=== PATIENT | male | born 1985 | race Caucasian/White ===

== ENCOUNTER 2018-09-24 11:48 | Emergency (ER) | payer OTHER, MEDICAID ==
[~2018-09-24] VITALS: Ht 177.8 cm; Wt 99.8 kg
[2018-09-24 11:50] VITALS: BP 118/73
--- NOTE | 2018-09-24 12:00 | NUR ---
PT PRESENTS TO ED WITH C/O DIZZINESS & BLE PAIN 5/10 FOR APPROX 3 DAYS. DENIES NAUSEA, VOMITING. DENIES TRAUMA OR INJURY. PT IS ALERT AND ORIENTED TO PERSON, PLACE, TIME AND EVENT. BILATERAL HAND HAND GLOVE CLEANER EQUAL; BILATERAL FOOT PUSH EQUAL. SPEECH IS CLEAR. NO FACIAL ASYMMETRY OBSERVED. CONNECTED TO INSTITUTIONAL AIDE;VSS. ERMD TO EVALUATE PT.
[2018-09-24] MEDS ORDERED: NACL 0.9% 1,000 ML IV ONE (12:10)
--- NOTE | 2018-09-24 12:15 | NUR ---
PT ENCOURAGED TO URINATE FOR UDS; PER PT HE IS UNABLE TO PROVIDE URINE SAMPLE AT THIS TIME.
[2018-09-24 12:40] LABS: BASOPHILS % (AUTO) 0.7 % (0.0-2.0); EOSINOPHILS # (AUTO) 0.1 K/uL (0-0.4); EOSINOPHILS % (AUTO) 1.1 % (0.0-4.0); HEMATOCRIT 42.9 % (36-52); HEMOGLOBIN 14.3 g/dL (12.0-18.0); LYMPHOCYTES # (AUTO) 0.8 K/uL (2.0-11.5); LYMPHOCYTES % (AUTO) 15.2 % (20.5-51.1); MEAN CORPUSCULAR HEMOGLOBIN 31 pg (27-31); MEAN CORPUSCULAR HGB CONC 34 g/dL (33-37); MEAN CORPUSCULAR VOLUME 91.4 fL (80-94); MONOCYTES # (AUTO) 0.4 K/uL (0.8-1.0); MONOCYTES % (AUTO) 7.7 % (1.7-9.3); NEUTROPHILS # (AUTO) 4.1 K/uL (1.8-7.7); NEUTROPHILS % (AUTO) 75.3 % (42.2-75.2); PLATELET COUNT (AUTO) 230 K/uL (140-450); RED BLOOD CELL COUNT(AUTO) 4.69 MIL/uL (4.20-6.10); RED CELL DISTRIBUTION WIDTH 14.1 % (11.6-13.7); WHITE BLOOD COUNT (AUTO) 5.4 K/uL (4.8-10.8)
[2018-09-24 12:49] LABS: ANION GAP 11.8 (8-16); CHLORIDE 107 mmol/L (98-107); CREATININE 1.1 mg/dL (0.7-1.3); GFR ARICAN-AMERICAN 99 mL/min (>90); GLUCOSE 102 mg/dL (74-106); POTASSIUM 3.8 mmol/L (3.5-5.1); SODIUM SERUM 142 mmol/L (136-145); UREA NITROGEN, BLOOD 7 mg/dL (7-18)
[2018-09-24 12:54] LABS: ALBUMIN 3.4 g/dL (3.4-5.0); ASPARTATE AMINOTRANSFERASE 15 U/L (15-37); TOTAL BILIRUBIN 0.6 mg/dL (0.0-1.0)
[2018-09-24 12:55] LABS: SALICYLATE < 2.8 mg/dL (2.8-20.0)
[2018-09-24 12:56] LABS: ACETAMINOPHEN < 0.5 ug/ml (10-30)
--- NOTE | 2018-09-24 14:00 | NUR ---
ENCOURAGED PT TO PROVIDE URINE SAMPLE; PT STATED HE JUST USED THE RR AND IS UNABLE TO URINATE AT THIS TIME. DR MCDUFFIE INFORMED.
[2018-09-24 14:28] VITALS: BP 118/72
== END 2018-09-24 14:28 | disposition home or self-care (01) ==
LOC: MED 11:48
DX: M25.561 Pain in right knee (principal); R42 Dizziness and giddiness; R63.0 Anorexia; F20.9 Schizophrenia, unspecified
CPT/HCPCS: 36415; 72100; 80053; 85025; 93005; 96360; 99284; G0480; G0482; J7030

== ENCOUNTER 2018-10-04 19:07 | Emergency (ER) | payer OTHER, MEDICAID ==
[~2018-10-04] VITALS: Ht 175.3 cm; Wt 88.5 kg
[2018-10-04 19:17] VITALS: BP 124/79
--- NOTE | 2018-10-04 19:19 | NUR ---
PT AMBULATED TO LOBBY.
--- NOTE | 2018-10-04 19:34 | NUR ---
pt was called from the lobby, no response, lwbs
--- NOTE | 2018-10-04 19:47 | NUR ---
pt was called for the 2nd time, no response, lwbs
--- NOTE | 2018-10-04 20:04 | NUR ---
PATIENT LEFT WITHOUT BEING SEEN BY DR. blevins. NO FURTHER CARE PROVIDED FOR PATIENT.
--- NOTE | 2018-10-04 20:04 | NUR ---
pt was called for the 3rd time, no response lwbs
== END 2018-10-04 19:34 | disposition left against medical advice (07) ==
LOC: MED 19:07
DX: L02.413 Cutaneous abscess of right upper limb (principal)
CPT/HCPCS: 99283; J2001

== ENCOUNTER 2018-10-05 00:36 | Emergency (ER) | payer OTHER, MEDICAID ==
[~2018-10-05] VITALS: Ht 175.3 cm; Wt 90.7 kg
[2018-10-05 00:44] VITALS: BP 138/62
--- NOTE | 2018-10-05 00:48 | NUR ---
PT AMBULATED TO BED 5.
--- NOTE | 2018-10-05 00:58 | NUR ---
PT BIB SELF FOR RT FOREARM ABCESS. AREA IS CIRCULAR, RED, SWOLLEN, FIRM. PT STATES HE HAS HAD "PUS" AND BLEEDING FROM AREA, NO OPEN SKIN, BLEEDING, OR D/C NOTED AT THIS TIME. PT RESTING IN BED, GIRLFRIEND AT BEDSIDE.
--- NOTE | 2018-10-05 01:42 | NUR ---
Dr. White examining patient.
[2018-10-05] MEDS ORDERED: LIDOCAINE MPF 1% - 5 mL VIAL 5 ML ONE (02:02)
[2018-10-05] MEDS: LIDOCAINE 1% 500 MG/50 ML VIAL INJ SCH (02:21)
--- NOTE | 2018-10-05 02:26 | NUR ---
PT WOUND COVERED WITH NON ADHERENT GAUZE DRESSING AND WRAPPED WITH COFLEX TAPE
--- NOTE | 2018-10-05 02:35 | NUR ---
Patient discharged with v/s stable. Written and verbal after care instructions given and explained. Patient alert, oriented and verbalized understanding of instructions. Ambulatory with steady gait. All questions addressed prior to discharge. ID band removed. Patient advised to follow up with PMD. Rx of BACTRIM AND MOTRIN given. Patient educated on indication of medication including possible reaction and side effects. Opportunity to ask questions provided and answered.
[2018-10-05 02:36] VITALS: BP 138/62
== END 2018-10-05 02:35 | disposition home or self-care (01) ==
LOC: MED 00:36
DX: L02.413 Cutaneous abscess of right upper limb (principal)
CPT/HCPCS: 10060; 99283; J2001

== ENCOUNTER 2018-11-17 17:57 | Emergency (ER) | payer OTHER, MEDICAID | END 2018-11-17 18:10 | disposition left against medical advice (07) | LOC: MED 17:57 | DX: Z53.21 Procedure and treatment not carried out due to patient leaving prior to being seen by health care provider (principal) ==

== ENCOUNTER 2019-01-26 15:05 | Emergency (ER) | payer OTHER, MEDICAID ==
[~2019-01-26] VITALS: Ht 177.8 cm; Wt 90.7 kg
[2019-01-26 15:16] VITALS: BP 106/62
--- NOTE | 2019-01-26 15:19 | NUR ---
GNOZALO DIEHL EVALUATING PT AT BEDSIDE.
--- NOTE | 2019-01-26 15:24 | NUR ---
PT CAME TO ER WITH C/O POSSIBLE RATTLESNAKE BITE. 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 DOES NOT KNOW IF WAS BIT, IS LOOKING AT LEGS, BUT COULD NOT LOCALIZED BITE LAWS. DENIES PAIN TO LEGS OR ELSEWHERE. STATES "VIBRATING SENSATION IN MY HEAD" AND DRY MOUTH AT THIS TIME. PT SEEN BY PA. PT IS AOX4. RR EVEN AND NON-LABORED. NO ACUTE DISTRESS NOTED. WILL CONTIUE TO MONITOR PT. HX- SCHIZOPHRENIA NKA
[2019-01-26 15:29] VITALS: BP 106/62
--- NOTE | 2019-01-26 15:29 | NUR ---
Patient discharged with v/s stable. Written and verbal after care instructions given and explained. Patient verbalized understanding. Ambulatory with steady gait. All questions addressed prior to discharge. Advised to follow up with PMD. Pt went home with family member. VS stable. No acute distress noted.
== END 2019-01-26 15:29 | disposition home or self-care (01) ==
LOC: MED 15:05
DX: Z00.8 Encounter for other general examination (principal)
CPT/HCPCS: 99281

== ENCOUNTER 2019-02-02 14:19 | Emergency (ER) | payer OTHER, MEDICAID ==
[~2019-02-02] VITALS: Ht 175.3 cm; Wt 95.7 kg
[2019-02-02 14:23] VITALS: BP 125/76
--- NOTE | 2019-02-02 14:30 | NUR ---
C/O BILAT LEG ACHING, FEELING SOB AND WEAK X1 WEEK. LUNG SOUNDS CAEBL, NO LABORED BREATHING NOTED, O2 SAT 98% RA. PT DENIES INJURY TO BILAT LEGS, STATES " THEYRE PROBABLY TIRED FROM ME WORKING." STATES HE MOVES TREES AND DOES GARDENING FOR A LIVING. BED IN LOW POSITION, SIDE RAIL UP X1
--- NOTE | 2019-02-02 14:35 | NUR ---
GONZALO CRAWFORD AT BEDSIDE
--- NOTE | 2019-02-02 14:50 | NUR ---
Patient discharged with v/s stable. Written and verbal after care instructions given and explained. Patient verbalized understanding. Ambulatory with steady gait. All questions addressed prior to discharge. Advised to follow up with PMD.
== END 2019-02-02 14:50 | disposition home or self-care (01) ==
LOC: MED 14:19
DX: Z00.8 Encounter for other general examination (principal); F20.9 Schizophrenia, unspecified; F17.210 Nicotine dependence, cigarettes, uncomplicated
CPT/HCPCS: 99281

== ENCOUNTER 2019-03-20 01:39 | Emergency (ER) | payer OTHER, MEDICAID ==
[~2019-03-20] VITALS: Ht 177.8 cm; Wt 95.3 kg
[2019-03-20 01:50] VITALS: BP 125/73
--- NOTE | 2019-03-20 01:50 | NUR ---
TO BED # 04 AMBULATORY
--- NOTE | 2019-03-20 02:10 | NUR ---
33 YEAR OLD MALE COMPLAINS OF COUGH X 3 DAYS. PATIENT STATES HE HAS ALSO HAD A HEADACHE. LUNGS CTABL, BREATHING EVEN AND UNLABORED. BED IN LOWEST POSITION, LOCKED, BED RAIL UPX1.
[2019-03-20 02:45] VITALS: BP 125/73
--- NOTE | 2019-03-20 02:45 | NUR ---
Patient discharged with v/s stable. Written and verbal after care instructions ABOUT UPPER RESPIRATORY INFECTIONS given and explained. Patient alert, oriented and verbalized understanding of instructions. Ambulatory with steady gait. All questions addressed prior to discharge. ID band removed. Patient advised to follow up with PMD. Rx of MOTRIN AND PROMETHAZINE/DEXTROMETHORPHAN given. Patient educated on indication of medication including possible reaction and side effects. Opportunity to ask questions provided and answered.
== END 2019-03-20 02:45 | disposition home or self-care (01) ==
LOC: MED 01:39
DX: J06.9 Acute upper respiratory infection, unspecified (principal); R03.0 Elevated blood-pressure reading, without diagnosis of hypertension; F17.200 Nicotine dependence, unspecified, uncomplicated
CPT/HCPCS: 99283

== ENCOUNTER 2019-03-25 00:09 | Emergency (ER) | payer OTHER, MEDICAID ==
[~2019-03-25] VITALS: Ht 177.8 cm; Wt 95.3 kg
[2019-03-25 00:11] VITALS: BP 125/78
--- NOTE | 2019-03-25 00:31 | NUR ---
33 YEAR OLD MALE COMPLAINS OF COUGH X 2 DAYS. PATIENT STATES THERE HAS BEEN ALOT OF MUCUS IN COUGH. PATIENT COMPLAINS OF SORE THROAT. STATES PATIENT HAS BEEN MORE TIRED TODAY. PATIENT DENIES SOB, DENIES N/V/D. PATIENT STATES HE HAS NONRADIATING CHEST PAIN ONLY WITH COUGHING. PATIENT AOX4, BREATHING EVEN AND UNLABORED, LUNGS CTABL, SKIN WARM AND DRY. BED IN LOWEST POSITION, LOCKED, BED RAIL UPX1. PMH - DENIES ALLERGIES - NKA
[2019-03-25] MEDS ORDERED: KETOROLAC 30 MG/ML VIAL IM ONE (00:50)
[2019-03-25 01:04] LABS: BARBITURATE, URINE NEG. ng/ml (NEG <=200); BENZODIAZEPINE, URINE NEG. ng/mL (NEG <=200); CANNABINOID, URINE NEG. ng/mL (NEG <=50); COCAINE, URINE NEG. ng/mL (NEG <=300); OPIATE, URINE NEG. ng/mL (NEG <=2000); PHENCYCLIDINE SCREEN,URINE NEG. ng/mL (NEG <=25)
--- NOTE | 2019-03-25 01:42 | NUR ---
Patient discharged with v/s stable. Written and verbal after care instructions ABOUT ACUTE BRONCHITIS given and explained. Patient alert, oriented and verbalized understanding of instructions. Ambulatory with steady gait. All questions addressed prior to discharge. ID band removed. Patient advised to follow up with PMD. Rx of GUAIATUSSIN AND KEFLEX given. Patient educated on indication of medication including possible reaction and side effects. Opportunity to ask questions provided and answered.
[2019-03-25 01:45] VITALS: BP 118/95
== END 2019-03-25 01:42 | disposition home or self-care (01) ==
LOC: MED 00:09
DX: J20.9 Acute bronchitis, unspecified (principal)
CPT/HCPCS: 71045; 80305; 87804; 99284; J1885; Q0092

== ENCOUNTER 2019-06-17 02:20 | Inpatient (IN) | payer OTHER, MEDICAID ==
[~2019-06-17] VITALS: Ht 177.8 cm; Wt 94.8 kg
[2019-06-17 02:26] VITALS: BP 119/80
--- NOTE | 2019-06-17 02:32 | NUR ---
PT AMBULATED TO BED 11 WITH STEADY GAIT
[2019-06-17] MEDS ORDERED: NACL 0.9% 1,000 ML IV ONE ×2 (02:45→04:50)
[2019-06-17] MEDS ORDERED: KETOROLAC 30 MG/ML VIAL IVP ONE (02:45)
[2019-06-17 02:56] LABS: BASOPHILS % (AUTO) 0.6 % (0.0-2.0); EOSINOPHILS # (AUTO) 0.1 K/uL (0-0.4); EOSINOPHILS % (AUTO) 1.5 % (0.0-4.0); HEMATOCRIT 42.1 % (36-52); HEMOGLOBIN 14.4 g/dL (12.0-18.0); LYMPHOCYTES # (AUTO) 1.4 K/uL (2.0-11.5); LYMPHOCYTES % (AUTO) 24.3 % (20.5-51.1); MEAN CORPUSCULAR HEMOGLOBIN 31 pg (27-31); MEAN CORPUSCULAR HGB CONC 34 g/dL (33-37); MEAN CORPUSCULAR VOLUME 90.1 fL (80-94); MONOCYTES # (AUTO) 0.6 K/uL (0.8-1.0); NEUTROPHILS # (AUTO) 3.7 K/uL (1.8-7.7); NEUTROPHILS % (AUTO) 63.6 % (42.2-75.2); PLATELET COUNT (AUTO) 237 K/uL (140-450); RED BLOOD CELL COUNT(AUTO) 4.68 MIL/uL (4.20-6.10); RED CELL DISTRIBUTION WIDTH 12.9 % (11.6-13.7); WHITE BLOOD COUNT (AUTO) 5.8 K/uL (4.8-10.8)
[2019-06-17 02:57] LABS: APPEARANCE,URINE CLEAR (CLEAR); BILIRUBIN,URINE NEGATIVE (NEGATIVE); BLOOD, URINE NEGATIVE (NEGATIVE); COLOR,URINE YELLOW (YELLOW); LEUKOCYTE ESTERASE ,URINE NEGATIVE (NEGATIVE); NITRITE, URINE NEGATIVE (NEGATIVE); UGLUCOSE NEGATIVE (NEGATIVE)
--- NOTE | 2019-06-17 03:01 | NUR ---
34M AROUND MIDNIGHT PT HAD INTERMITTENT LOWER ABD PAIN THAT FELT LIKE CRAMPING IN SENSATION WITH PAIN 8/10. PAIN WAS NON RADIATING. PT DENIES ANY TRAUMA. NO OTC MEDICATION TAKEN FOR PAIN . PT STATES FEELS BLOATED. TENDER TO PALP. REPORTS DIARRHEA X 3, SOFT AND NO HEMATOCHEZIA. REPORTS USING METH, HEROIN AND PCP X TODAY. MEDICAL HX: SCHIZOPHRENIA RX: METH, HEROIN,PCP NKA
--- NOTE | 2019-06-17 03:07 | NUR ---
PT MEDICATED WITH TORADOL. TOLERATED PROCEDURE WELL.
[2019-06-17 03:22] LABS: ALBUMIN 3.8 g/dL (3.4-5.0); ANION GAP 13.3 (8-16); CARBON DIOXIDE 28.3 mmol/L (21-32); CREATININE 1.3 mg/dL (0.6-1.3); POTASSIUM 3.6 mmol/L (3.5-5.1); TOTAL BILIRUBIN 0.7 mg/dL (0.0-1.0)
--- NOTE | 2019-06-17 03:35 | NUR ---
pt taken to CT via w/c
--- NOTE | 2019-06-17 04:23 | NUR ---
received phone call from Dr. Senior and translated CT results as sigmoid volvulus. Dr. Avalos made aware
[2019-06-17] MEDS ORDERED: DEXT 5% /NACL 0.9% 1,000 ML IV SCH (04:46)
[2019-06-17] MEDS ORDERED: ONDANSETRON 4 MG/2 ML VIAL IM/IVP PRN (04:50)
[2019-06-17] MEDS ORDERED: HYDROcodone/APAP 5/325 MG 1 TAB TAB PO PRN (04:50)
[2019-06-17] MEDS ORDERED: DOCUSATE SODIUM 100 MG GELCAP PO PRN (04:50)
[2019-06-17] MEDS ORDERED: ACETAMINOPHEN 325 MG TAB PO PRN (04:50)
[2019-06-17] MEDS ORDERED: LORazepam 2 MG/ML VIAL IM/IVP PRN (04:50)
[2019-06-17] MEDS ORDERED: MORPHINE SULFATE 2 MG/ML SYR IVP PRN (04:50)
--- NOTE | 2019-06-17 05:16 | NUR ---
XRAY AT BEDSIDE.
--- NOTE | 2019-06-17 05:25 | NUR ---
PT STATES NOT TAKING ANY MEDS.
--- NOTE | 2019-06-17 05:35 | NUR ---
RECEIVED BEDSIDE REPORT FROM AJITH JOSHUA RN. PT IS AAOX4. RWANDAN SPEAKING. RESPIRATIONS ARE EQUAL AND UNLABORED ON ROOM AIR. LUNG SOUNDS ARE CLEAR. SKIN IS INTACT. SKIN IS WARM AND DRY. SKIN COLOR IS APPROPRIATE FOR ETHNICITY. PT AMBULATORY WITH STEADY GAIT. ABD IS SOFT AND BLOATED. DENIES ANY PAIN AT THIS TIME. BOWEL SOUNDS ARE ACTIVE X3. LBM TODAY PER PT STATES, "FELT WEIRD" DENIES BLOOD, OR LIQUID BM. EDUCATED PT IS NPO D/T POSSIBLE SURGERY VERBALIZED UNDERSTANDING. STATES LAST MEAL WAS LAST NIGHT APPROX 2300. VS: 98.0 [id number] HR 82 134/83 RR 18 DENIES PAIN. MRSA SWAB OBTAINED. ORIENTED PT TO ROOM,STAFF, AND CALL LIGHT.
[2019-06-17 05:40] VITALS: BP 134/83
--- NOTE | 2019-06-17 05:46 | NUR ---
Patient will be admitted to care of DR LARA. Admited to MED SURG. Will go to [id number]. Belongings list completed. Report to SEVERINO WINSLOW.
[2019-06-17 07:02] LABS: PROTHROMBIN TIME 9.8 secs (10.8-13.4)
--- NOTE | 2019-06-17 07:05 | NUR ---
RECEIVED REPORT FROM RAMP MANAGER NURSE. PT IS CURRENTLY SLEEPING WITH NO SIGNS OF DISTRESS NOTED. SKIN IS INTACT WITH IV PATENT ASYMPTOMATIC AND INFUSING PER ORDER. RESPIRATIONS EVEN AND UNLABORED CLEAR THROUGHOUT ON ROOM AIR. BED IS IN LOW SEMI-FOWLERS POSITION WITH SAFETY MEASURES IN PLACE, CALL LIGHT WITHIN REACH.
--- NOTE | 2019-06-17 07:15 | NUR ---
GAVE BEDSIDE REPORT TO DAY RN. PT ENDORSED IN STABLE CONDITION.
[2019-06-17 07:20] LABS: MAGNESIUM 2.1 mg/dL (1.8-2.4); PHOSPHORUS 3.8 mg/dL (2.5-4.9); THYROID STIMULATING HORMONE 1.22 uIU/mL (0.34-3.74)
[2019-06-17 08:00] VITALS: BP 122/89
[2019-06-17] MEDS ORDERED: SODIUM PHOSPHATE 118 ML ENEM RC SCH (08:35)
--- NOTE | 2019-06-17 09:11 | NUR ---
PATIENT HAS BEEN SCREENED AND CATEGORIZED MODERATE NUTRITION RISK. PATIENT WILL BE SEEN WITHIN 3-5 DAYS OF ADMISSION. 06/19/19 06/21/[address]
[2019-06-17] MEDS ORDERED: MAGNESIUM CITRATE 300 ML BTL PO SCH (09:15)
[2019-06-17] MEDS: PANTOPRAZOLE 40 MG INJ VIAL IVP SCH (09:16)
--- NOTE | 2019-06-17 09:30 | NUR ---
ADMINISTERED MEDICATIONS PER ORDER AND TOLERATED WELL. NO SIGNS OF DISTRESS NOTED AND PT DOES NOT COMPLAIN OF ANY PAIN AT THIS TIME. PHYSICIAN CAME TO SEE PT AND EXPLAINED THAT IF ENEMA IS NOT CORRECTIVE FOR DIAGNOSIS THAT COLONOSCOPY WILL HAVE TO BE DONE. PT VERBALIZED UNDERSTANDING, SAFETY MEASURES IN PLACE AND WILL CONTINUE TO MONITOR.
[2019-06-17] MEDS: POTASSIUM CHL 40 MEQ/ D5-1/2NS 1,000 ML IV SCH ×2 (10:15→19:05)
--- NOTE | 2019-06-17 10:25 | NUR ---
PT WAS TAKEN FOR GASTRIC ENEMA AND LEFT UNIT VIA WHEEL CHAIR.
--- NOTE | 2019-06-17 11:17 | NUR ---
DC PLANNIN YRS OLD MALE PATIENT WAS ADMITTED FROM HOME WITH A DX OF SIGMOID VOLVULUS. PT HAS NO MEDICAL HISTORY. CXR -NO ACUTE DISEASE ,CT ABD/PELVIS SHOWED SIGMOID VOLVULUS. STARTED WITH IV NS BOLUS, CONSULTED WITH SURGEON DR LOPEZ RECOMMENDED GI TO BE CONSULTED FOR COLONOSCOPY . DR QUINONES RECOMMENDATIONS PENDING. DC PLAN PER MD'S RECOMMENDATIONS CM TO FOLLOW.
[2019-06-17] MEDS: SENNA 8.6 MG TAB PO SCH ×3 (13:01→20:15)
[2019-06-17] MEDS: POLYETHYLENE GLYCOL 17 GM/PKT PO SCH ×2 (13:01→17:29)
--- NOTE | 2019-06-17 13:05 | NUR ---
ADMINISTERED MEDICATIONS PER ORDER AND TOLERATED WELL. NO SIGNS OF DISTRESS OR COMPLAINTS OF PAIN NOTED. SAFETY MEASURES IN PLACE AND WILL CONTINUE TO MONITOR.
[2019-06-17 14:30] VITALS: BP 113/82
--- NOTE | 2019-06-17 15:40 | NUR ---
PT IS CURRENTLY SLEEPING WITH NO SIGNS OF DISTRESS . SAFETY MEASURES IN PLACE AND WILL CONTINUE TO MONITOR.
--- NOTE | 2019-06-17 17:30 | NUR ---
MEDICATIONS ADMINISTERED PER ORDER AND TOLERATED WELL. PT DOES NOT COMPLAIN OF ANY PAIN AT THIS TIME. SAFETY MEASURES IN PLACE AND WILL CONTINUE TO MONITOR.
--- NOTE | 2019-06-17 19:13 | NUR ---
ENDORSED TO MARINE EXTENSION AGENT NURSE FOR CONTINUITY OF CARE. PT IS IN STABLE CONDITION
--- NOTE | 2019-06-17 19:14 | NUR ---
RECEIVED PATIENT IN STABLE CONDITION FROM AM SHIFT NURSE FOR CONTINUITY OF CARE. RESPIRATIONS EVEN, UNLABORED. SKIN WARM, DRY. IV SITE NOTED TO LEFT AC 20G PATENT/INTACT, INFUSING FLUIDS WELL. NO C/O PAIN. NO S/SX ACUTE DISTRESS. CALL LIGHT WITHIN REACH. WILL CONTINUE TO MONITOR.
--- NOTE | 2019-06-17 21:20 | NUR ---
PATIENT AWAKE AND WATCHING TV IN BED. NO C/O PAIN. NO S/SX ACUTE DISTRESS. PROVIDED EDUCATION REGARDING BOWEL MOVEMENTS AND DISCUSSED PLAN OF CARE. CALL LIGHT WITHIN REACH. WILL CONTINUE TO MONITOR.
--- NOTE | 2019-06-17 23:43 | NUR ---
PATIENT ASLEEP IN BED. NO C/O PAIN. NO S/SX ACUTE DISTRESS. CALL LIGHT WITHIN REACH. WILL CONTINUE TO MONITOR.
[2019-06-18] VITALS: BP 111/72
--- NOTE | 2019-06-18 01:14 | NUR ---
MADE ROUNDS. PATIENT CONTINUES IN STABLE CONDITION. NO C/O PAIN. NO S/SX ACUTE DISTRESS. CALL LIGHT WITHIN REACH. WILL CONTINUE TO MONITOR.
[2019-06-18] MEDS: POTASSIUM CHL 40 MEQ/ D5-1/2NS 1,000 ML IV SCH (03:26)
--- NOTE | 2019-06-18 03:34 | NUR ---
PATIENT AWAKE. CONTINUES IN STABLE CONDITION. NO C/O PAIN. NO S/SX ACUTE DISTRESS. CALL LIGHT WITHIN REACH. WILL CONTINUE TO MONITOR.
--- NOTE | 2019-06-18 05:21 | NUR ---
PATIENT CONTINUES IN STABLE CONDITION. NO C/O PAIN. NO S/SX ACUTE DISTRESS. CALL LIGHT WITHIN REACH. WILL CONTINUE TO MONITOR.
[2019-06-18 05:24] LABS: BASOPHILS % (AUTO) 0.3 % (0.0-2.0); EOSINOPHILS # (AUTO) 0.2 K/uL (0-0.4); EOSINOPHILS % (AUTO) 3.3 % (0.0-4.0); HEMATOCRIT 44.8 % (36-52); HEMOGLOBIN 15.2 g/dL (12.0-18.0); LYMPHOCYTES # (AUTO) 1.4 K/uL (2.0-11.5); LYMPHOCYTES % (AUTO) 26.4 % (20.5-51.1); MEAN CORPUSCULAR HEMOGLOBIN 31 pg (27-31); MEAN CORPUSCULAR HGB CONC 34 g/dL (33-37); MEAN CORPUSCULAR VOLUME 90.6 fL (80-94); MONOCYTES # (AUTO) 0.6 K/uL (0.8-1.0); MONOCYTES % (AUTO) 11.2 % (1.7-9.3); NEUTROPHILS # (AUTO) 3.1 K/uL (1.8-7.7); NEUTROPHILS % (AUTO) 58.8 % (42.2-75.2); PLATELET COUNT (AUTO) 216 K/uL (140-450); RED BLOOD CELL COUNT(AUTO) 4.94 MIL/uL (4.20-6.10); RED CELL DISTRIBUTION WIDTH 13.1 % (11.6-13.7); WHITE BLOOD COUNT (AUTO) 5.2 K/uL (4.8-10.8)
[2019-06-18 05:45] LABS: ANION GAP 9.9 (8-16); CARBON DIOXIDE 28.2 mmol/L (21-32); CREATININE 1.1 mg/dL (0.6-1.3); POTASSIUM 4.1 mmol/L (3.5-5.1)
[2019-06-18 06:54] LABS: CHOL/HDL RATIO 4.3 (1-4.5)
--- NOTE | 2019-06-18 06:58 | NUR ---
ENDORSED PATIENT IN STABLE CONDITION TO AM SHIFT NURSE.
--- NOTE | 2019-06-18 07:00 | NUR ---
RECEIVED REPORT FROM SUPPORT SERVICES REP NURSE. PT IS CURRENTLY SLEEPING WITH NO SIGNS OF DISTRESS NOTED. SKIN IS INTACT WITH IV PATENT ASYMPTOMATIC AND INFUSING PER ORDER. RESPIRATIONS EVEN AND UNLABORED CLEAR THROUGHOUT ON ROOM AIR. BED IS IN LOW SEMI-FOWLERS POSITION WITH SAFETY MEASURES IN PLACE, CALL LIGHT WITHIN REACH.
[2019-06-18 08:00] VITALS: BP 136/84
[2019-06-18] MEDS: POLYETHYLENE GLYCOL 17 GM/PKT PO SCH (08:25)
[2019-06-18] MEDS: PANTOPRAZOLE 40 MG INJ VIAL IVP SCH (08:25)
[2019-06-18] MEDS: SENNA 8.6 MG TAB PO SCH (08:26)
--- NOTE | 2019-06-18 08:31 | NUR ---
ADMINISTERED MEDICATIONS PER ORDER AND TOLERATED WELL. NO SIGNS OF DISTRESS NOTED. PT IS SLEEPING BUT ALERT AND ABLE TO TAKE MEDICATIONS SAFELY. SAFETY MEASURES IN PLACE AND WILL CONTINUE TO MONITOR.
--- NOTE | 2019-06-18 10:41 | NUR ---
PT WANTS TO KNOW WHEN HE WILL BE ABLE TO GO HOME. STATS THAT HE DOES NOT FEEL THE NEED TO BE HERE. WILL CONTACT PHYSICIAN TO FOLLOW WITH PLAN OF CARE.
[2019-06-18] MEDS ORDERED: SENN8.8S7 PO (11:50)
[2019-06-18] MEDS ORDERED: MIRABULK PO (11:50)
--- NOTE | 2019-06-18 12:10 | NUR ---
PT KEEPS ASKING WHEN THEY WILL GO HOME AND WANTS TO KNOW WHEN THEY CAN EAT REGULAR FOOD.
[2019-06-18 12:35] VITALS: BP 136/84
--- NOTE | 2019-06-18 13:40 | NUR ---
PT WAS DISCHARGED TO HOME AND ESCORTED OFF OF UNIT. IV WAS REMOVED WITH LUMEN INTACT AND MINIMAL BLOOD LOSS. ID BANDS WERE REMOVED. DISCHARGE TEACHING, MEDICATION ADHERENCE, AND MD FOLLOW UP WERE EXPLAINED. PT VERBALIZED UNDERSTANDING AND NO FURTHER QUESTIONS WERE ASKED.
== END 2019-06-18 13:40 | disposition home or self-care (01) | DRG 389 ==
LOC: MED 02:20 → MTU 04:46
PROVIDERS: ADMIT General Practice; ATTEND General Practice
DX: K56.2 Volvulus (principal); Q43.8 Other specified congenital malformations of intestine; E66.9 Obesity, unspecified; Z68.30 Body mass index [BMI] 30.0-30.9, adult; Z71.3 Dietary counseling and surveillance; K59.00 Constipation, unspecified; Z71.51 Drug abuse counseling and surveillance of drug abuser; K92.89 Other specified diseases of the digestive system; F20.9 Schizophrenia, unspecified; F15.10 Other stimulant abuse, uncomplicated; F11.10 Opioid abuse, uncomplicated
CPT/HCPCS: 36415; 71045; 74018; 74270; 80048; 80053; 80305; 81003; 82150; 83036; 83605; 83690; 83735; 83880; 84100; 84443; 85025; 85610; 85730; 86886; 86900; 86901; 87081; 96361; 96374; 99285; C9113; J1885; Q0092; Q9967

== ENCOUNTER 2019-06-25 03:34 | Emergency (ER) | payer OTHER, MEDICAID ==
[~2019-06-25] VITALS: Ht 177.8 cm; Wt 102.1 kg
[~2019-06-25 03:34] MED LIST: MIRABULK PO; SENN8.8S7 PO
[2019-06-25 03:41] VITALS: BP 133/80
--- NOTE | 2019-06-25 03:46 | NUR ---
PT AMBULATED TO BED #11. NEGATIVE COVID-19 SCREENING.
--- NOTE | 2019-06-25 03:50 | NUR ---
PATIENT 34 Y/O MALE PRESENTS TO ED WITH C/O CONSTIPATION X 5 DAYS. PT STATES, "I FEEL BLOATED AND I ONLY POOPED 1 TIME IN 5 DAYS." PT STATES BM WAS SMALL, AND FORMED. PT DENIES ABD PAIN. BS PRESENT X 4. ABD ROUND, SOFT, AND NON-TENDER. SKIN IS PINK/WARM/DRY; AAOX4 WITH EVEN AND STEADY GAIT; RESPIRATIONS ARE EVEN AND UNLABORED. NEGATIVE FOR COVID SCREEN. PT WEARING MASK. MEDHX: PT DENIES ALLERGIES: NKA
[2019-06-25] MEDS ORDERED: NACL 0.9% 1,000 ML IV ONE (04:10)
[2019-06-25] MEDS ORDERED: MAGNESIUM CITRATE 300 ML BTL PO ONE (04:10)
--- NOTE | 2019-06-25 04:21 | NUR ---
PT TAKEN TO CT VIA WC.
--- NOTE | 2019-06-25 04:55 | NUR ---
PATIENT ELOPED FROM FACILITY. DISCHARGE INSTRUCTIONS NOT GIVEN TO PATIENT. DR. DIOP NOTIFIED.
== END 2019-06-25 04:40 | disposition left against medical advice (07) ==
LOC: MED 03:34
DX: R10.84 Generalized abdominal pain (principal); F15.129 Other stimulant abuse with intoxication, unspecified; F11.129 Opioid abuse with intoxication, unspecified; Z79.899 Other long term (current) drug therapy
CPT/HCPCS: 99284; J7030

== ENCOUNTER 2019-07-03 22:17 | Emergency (ER) | payer OTHER, MEDICAID ==
[~2019-07-03] VITALS: Ht 177.8 cm; Wt 99.3 kg
[2019-07-03 22:30] VITALS: BP 135/79
[2019-07-03] MEDS ORDERED: KETOROLAC 60 MG/2 ML VIAL IM ONE (22:55)
[2019-07-04 01:48] VITALS: BP 128/49
== END 2019-07-04 01:51 | disposition home or self-care (01) ==
LOC: MED 22:17
DX: M79.641 Pain in right hand (principal); M79.642 Pain in left hand; M54.9 Dorsalgia, unspecified; F17.200 Nicotine dependence, unspecified, uncomplicated; Z79.899 Other long term (current) drug therapy; V49.69XA Unspecified car occupant injured in collision with other motor vehicles in traffic accident, initial encounter; Y93.89 Activity, other specified; Y92.89 Other specified places as the place of occurrence of the external cause; Y99.8 Other external cause status
CPT/HCPCS: 72100; 73130; 96372; 99284; J1885; 99283

== ENCOUNTER 2019-12-06 18:13 | Emergency (ER) | payer OTHER, MEDICAID ==
[~2019-12-06] VITALS: Ht 177.8 cm; Wt 104.3 kg
[2019-12-06 18:20] VITALS: BP 131/79
--- NOTE | 2019-12-06 18:21 | NUR ---
Patient ambulated to bed 5. RN evaluating patient at bedside.
--- NOTE | 2019-12-06 18:33 | NUR ---
agriculture laboratory technician at bedside.
[2019-12-06] MEDS ORDERED: IBUPROFEN 600 MG TAB PO ONE (18:35)
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
[2019-12-06 19:09] VITALS: BP 131/79
--- NOTE | 2019-12-06 19:09 | NUR ---
Received report from NAYLA Jernigan for continuation of care.
--- NOTE | 2019-12-06 19:13 | NUR ---
PATIENT ELOPED FROM FACILITY. DISCHARGE INSTRUCTIONS NOT GIVEN TO PATIENT. DR. ALLEN NOTIFIED.
== END 2019-12-06 19:13 | disposition left against medical advice (07) ==
LOC: MED 18:13
DX: S63.8X2D Sprain of other part of left wrist and hand, subsequent encounter (principal); S60.222A Contusion of left hand, initial encounter; Z79.899 Other long term (current) drug therapy; V19.9XXA Pedal cyclist (driver) (passenger) injured in unspecified traffic accident, initial encounter; Y93.89 Activity, other specified; Y92.89 Other specified places as the place of occurrence of the external cause; Y99.8 Other external cause status
CPT/HCPCS: 29125; 73110; 73130; 99284; Q0092

== ENCOUNTER 2019-12-18 04:37 | Emergency (ER) | payer OTHER, MEDICAID ==
[~2019-12-18] VITALS: Ht 172.7 cm; Wt 99.3 kg
[2019-12-18 04:43] VITALS: BP 167/74
--- NOTE | 2019-12-18 04:46 | NUR ---
PT TAKEN TO BED 6
--- NOTE | 2019-12-18 04:48 | NUR ---
Dr. Castillo examining patient.
[2019-12-18 05:06] VITALS: BP 167/74
--- NOTE | 2019-12-18 05:07 | NUR ---
NO NURSING INTERVENTION DONE DURING VISIT.
== END 2019-12-18 05:07 | disposition home or self-care (01) ==
LOC: MED 04:37
DX: S30.811A Abrasion of abdominal wall, initial encounter (principal); Z79.899 Other long term (current) drug therapy; W22.8XXA Striking against or struck by other objects, initial encounter; Y93.89 Activity, other specified; Y92.89 Other specified places as the place of occurrence of the external cause; Y99.8 Other external cause status
CPT/HCPCS: 99282

== ENCOUNTER 2020-05-06 03:12 | Emergency (ER) | payer OTHER, MEDICAID ==
[~2020-05-06] VITALS: Ht 180.3 cm; Wt 95.3 kg
[2020-05-06 03:25] VITALS: BP 122/73
--- NOTE | 2020-05-06 03:25 | NUR ---
DR SERNA EXAMINING PT IN TRIAGE
--- NOTE | 2020-05-06 03:25 | NUR ---
34 Y/O MALE C/O RASH X3DAYS. PT STATES 8/10 BURNING PAIN. REDNESS AND RASH NOTED TO BACK/LLQ AND PELVIC AREA. MEDHX: DENIES NKA
[2020-05-06] MEDS ORDERED: chlordiazePOXIDE 25 MG CAP PO STA (03:26)
[2020-05-06] MEDS ORDERED: ACYCLOVIR 200 MG CAP PO STA (03:26)
[2020-05-06] MEDS ORDERED: GABAPENTIN 300 MG CAP PO ONE (03:30)
[2020-05-06] MEDS ORDERED: LIB25 PO (03:36)
[2020-05-06] MEDS ORDERED: GABA-640 PO (03:36)
[2020-05-06] MEDS ORDERED: ACYC-278 PO (03:36)
[2020-05-06 03:50] VITALS: BP 122/73
--- NOTE | 2020-05-06 03:50 | NUR ---
Patient discharged with v/s stable. Written and verbal after care instructions given and explained. Patient alert, oriented and verbalized understanding of instructions. Ambulatory with steady gait. All questions addressed prior to discharge. ID band removed. Patient advised to follow up with PMD. Rx of ACYCLOVIR, GABAPENTIN, AND LIBRIUM given. Patient educated on indication of medication including possible reaction and side effects. Opportunity to ask questions provided and answered.
== END 2020-05-06 03:50 | disposition home or self-care (01) ==
LOC: MED 03:12
DX: F10.129 Alcohol abuse with intoxication, unspecified (principal); B02.9 Zoster without complications; R00.0 Tachycardia, unspecified; Y90.9 Presence of alcohol in blood, level not specified
CPT/HCPCS: 99284

== ENCOUNTER 2020-09-13 19:34 | Emergency (ER) | payer OTHER, MEDICAID ==
[~2020-09-13] VITALS: Ht 182.9 cm; Wt 83.9 kg
[~2020-09-13 19:34] MED LIST changes: +ACYC-278 PO; +GABA-640 PO; +LIB25 PO
[2020-09-13 20:25] VITALS: BP 106/59
--- NOTE | 2020-09-13 20:54 | NUR ---
PATIENT LEFT WITHOUT BEING SEEN BY DR. DR. SOUSA. NO FURTHER CARE PROVIDED FOR PATIENT.
--- NOTE | 2020-09-13 20:54 | NUR ---
PATIENT CALLED TO BE IN BED , NO RESPONSE
--- NOTE | 2020-09-13 21:05 | NUR ---
CALLED FOR THE SECOND TIME NO RESPONSE
--- NOTE | 2020-09-13 21:15 | NUR ---
CALLED FOR THE THIRD TIME NO RESPOSE
== END 2020-09-13 20:54 | disposition left against medical advice (07) ==
LOC: MED 19:34
DX: H92.01 Otalgia, right ear (principal); Z53.21 Procedure and treatment not carried out due to patient leaving prior to being seen by health care provider

== ENCOUNTER 2021-10-04 13:33 | Emergency (ER) | payer OTHER, MEDICAID ==
[~2021-10-04] VITALS: Ht 175.3 cm; Wt 85.4 kg
[2021-10-04 13:45] VITALS: BP 99/45
--- NOTE | 2021-10-04 13:45 | NUR ---
PT AMB TOP ER BED 8 W/O ASST
[2021-10-04] MEDS ORDERED: TETRACAINE HCL/PF 0.5% OPTH 4 ML BTL ONE (13:57)
[2021-10-04] MEDS ORDERED: FLUORESCEIN OPTH STRIP 1 MG ONE (13:58)
[2021-10-04] MEDS ORDERED: FLUORESCEIN OPTH STRIP 1 MG OP ONE (14:00)
[2021-10-04] MEDS ORDERED: TETRACAINE HCL/PF 0.5% OPTH 4 ML BTL OP ONE (14:00)
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
[2021-10-04] MEDS ORDERED: ERYT5OIN51 RIGHT EYE (14:53)
[2021-10-04] MEDS ORDERED: IBUP-2213 PO (14:53)
[2021-10-04] MEDS ORDERED: HYDR-1093 PO (14:53)
[2021-10-04 15:23] VITALS: BP 119/76
--- NOTE | 2021-10-04 15:23 | NUR ---
Patient discharged with v/s stable. Written and verbal after care instructions given and explained. Patient alert, oriented and verbalized understanding of instructions. Ambulatory with steady gait. All questions addressed prior to discharge. ID band removed. Patient advised to follow up with PMD. Rx of ERYTHROMYCIN HYDROXYZINE HCI IBUPROFEN given.
== END 2021-10-04 15:23 | disposition home or self-care (01) ==
LOC: MED 13:33
DX: H54.61 Unqualified visual loss, right eye, normal vision left eye (principal); F20.9 Schizophrenia, unspecified; F17.200 Nicotine dependence, unspecified, uncomplicated; Z72.89 Other problems related to lifestyle
CPT/HCPCS: 99283